=== PATIENT | female | born 1995 ===

== ENCOUNTER 2019-05-26 05:28 | Day surgery (SDC) | payer OTHER ==
[2019-05-26] VITALS (14 sets, daily range): BP systolic 105–139; BP diastolic 60–91
[~2019-05-26] VITALS: Ht 167.6 cm; Wt 63.5 kg
[~2019-05-26 05:28] MED LIST: ADDERAL20 MG ORAL; oxyCODONE 5mg IR tab ORAL PRN
[2019-05-26] MEDS ORDERED: TransDerm Scop 1.5mg/72HR Patch TDERMAL ONE (05:53)
[2019-05-26] MEDS ORDERED: Sodium Chloride 10ml vial INJ ONE (06:20)
[2019-05-26] MEDS ORDERED: Lidocaine 1% MPF 10mg/ml 5ml ONE (06:20)
[2019-05-26] MEDS ORDERED: Lidocaine 1% Plain 30 ml INJ ONE ×2 (06:20→08:49)
[2019-05-26] MEDS ORDERED: Dexamethasone 4mg/ml vial ONE (06:20)
[2019-05-26] MEDS ORDERED: LR 1000ml 1,000 ML IVLG SCH (06:21)
--- NOTE | 2019-05-26 06:23 | Immediate Post-Op Evaluation ---
Immediate Post-Op Evalulation Immediate Post-Op Evalulation Procedure: ACDF C5-6, C6-7 Date of Evaluation: May 26, 2019 Time of Evaluation: 10:17 IV Fluids: 1000 LR` Blood Products: 0 Estimated Blood Loss: 50 Urinary Output: 0 Blood Pressure Systolic: 122 Blood Pressure Diastolic: 71 Pulse Rate: 77 Respiratory Rate: 16 O2 Sat by Pulse Oximetry: 100 Temperature (Fahrenheit): 98.2 Pain Score (1-10): 2 Nausea: No Vomiting: No Complications 0 Patient Status: awake, reacts, patent, extubated, none Hydration Status: adequate Dru Grams Ancef IV Given Within 1 Hr of Incision: Yes Time Given: 07:31 Ron Potts MD May 26, 2019 06:23
[2019-05-26] MEDS ORDERED: Rocuronium Bromide 50mg/5ml Inj IV ONE (06:25)
[2019-05-26] MEDS ORDERED: Acetaminophen (Non formulary) 100 ML IV ONE (06:30)
[2019-05-26] MEDS ORDERED: LORazepam Inj 2mg/ml 1ml IV PRN (06:30)
[2019-05-26] MEDS ORDERED: Atropine Sulfate 0.4mg/ml inj IVP PRN (06:30)
[2019-05-26] MEDS ORDERED: Midazolam 2mg/2ml Inj IVP PRN (06:30)
[2019-05-26] MEDS ORDERED: oxyCODONE HCL/Acetaminophen 5/325mg ORAL PRN (06:30)
[2019-05-26] MEDS ORDERED: HYDROcodone/Acetamin 5/325 tab ORAL PRN (06:30)
[2019-05-26] MEDS ORDERED: DiphenhydrAMINE 50mg/ml Inj IVP PRN (06:30)
[2019-05-26] MEDS ORDERED: fentaNYL 100 mcg/2 mL IV PRN (06:30)
[2019-05-26] MEDS ORDERED: Meperidine 50mg/ml Inj(FOR RIGORS ONLY) IVP PRN (06:30)
[2019-05-26] MEDS ORDERED: Hydromorphone 0.5mg/0.5ml inj IVP PRN (06:30)
[2019-05-26] MEDS ORDERED: HYDROcodone/Acetamin 7.5/325 tab ORAL PRN (06:30)
[2019-05-26] MEDS ORDERED: Ketorolac 30mg Inj IV PRN ×2 (06:30)
[2019-05-26] MEDS ORDERED: Thrombin 5000 units TOPIC ONE (06:43)
[2019-05-26] MEDS ORDERED: Gelfoam Size TOPIC ONE (06:43)
[2019-05-26] MEDS ORDERED: Bacitracin 50000 Units Vial ONE (06:43)
--- NOTE | 2019-05-26 06:59 | Pre-Procedure Note/Attestation ---
Pre-Procedure Note/Attestation Complete Prior to Procedure Planned Procedure: not applicable Procedure Narrative: ACDF C5-C6, C6-C6 Anterior Plate Indications for Procedure Pre-Operative Diagnosis: intervertebral osteochondrosis, trauma Attestation I attest that I discussed the nature of the procedure; its benefits; risks and complications; and alternatives (and the risks and benefits of such alternatives ), prior to the procedure, with the patient (or the patient's legal access representative). I attest that, if there was a reasonable possibility of needing a blood transfusion, the patient (or the patient's legal access representative) was given the [facility] standardized written summary, pursuant to the [place] Blood Safety Act ([place] Health and Safety Code # 1645, as amended). I attest that I re-evaluated the patient just prior to the surgery and that there has been no change in the patient's H&P, except as documented below: Brady Cuellar MD May 26, 2019 06:59
[2019-05-26] MEDS ORDERED: Propofol 1,000mg/ 100ml btl IV ONE (07:00)
[2019-05-26] MEDS ORDERED: Dexamethasone 20mg/5ml IVP ONE (07:00)
[2019-05-26] MEDS ORDERED: LR 1000ml ONE (07:00)
[2019-05-26] MEDS ORDERED: NS Irrig 2000ml IRRIG ONE (07:00)
[2019-05-26] MEDS ORDERED: ceFAZolin sod 1 GM in NS 55 ML IVPB ONE (07:00)
--- NOTE | 2019-05-26 07:02 | Anethesia Preoperative Eval ---
Anesthesia Pre-op PMH/ROS General Date of Evaluation: May 26, 2019 Time of Evaluation: 07:01 Anesthesiologist: Katlyn ASA Score: ASA 2 Mallampati Score Class I : Soft palate, uvula, fauces, pillars visible Class II: Soft palate, uvula, fauces visible Class III: Soft palate, base of uvula visible Class IV: Only hard plate visible Mallampati Classification: Class I Surgeon: Polo Diagnosis: Neck Pain Surgical Procedure: ACDF C5-6, C6-7 Anesthesia History: none Family History: no anesthesia problems Allergies: Coded Allergies: No Known Allergies (Unverified , 05/24/19) Medications: see eMAR Patient NPO?: Yes NPO Date: May 25, 2019 NPO Time: 5 Past Medical History Gastrointestinal/Genitourinary: Reports: GERD, other - Crohns Disease Neurologic/Psychiatric: Reports: depression/anxiety Hematology/Immune: Reports: anemia PSxH Narrative: Breast Implants Anesthesia Pre-op Phys. Exam Physician Exam Last Vital Signs Date Time Temp Pulse Resp B/P (MAP) Pulse Ox O2 Delivery O2 Flow Rate FiO2 05/26/19 06:23 97.5 56 20 105/60 (75) 100 05/26/19 05:55 Room Air Constitutional: NAD Neurologic: CN 2-12 intact Cardiovascular: RRR Respiratory: CTA Gastrointestinal: S/NT/ND Airway Exam Mallampati Score: Class I MO: full ROM: full Teeth: intact Anesthesia Pre-op A/P Labs Urine Test Test 05/26/19 05:40 Urine HCG, Qualitative Pending Risk Assessment & Plan Assessment: ASA 2 Plan: GA, SED, GlideScope Go Status Change Before Surgery: No Pre-Antibiotics Dru Grams Ancef IV Given Within 1 Hr of Incision: Yes Time Given: 07:31 Ron Potts MD May 26, 2019 07:02
[2019-05-26] MEDS ORDERED: NS Irrig 1000ml IRRIG ONE (07:30)
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
--- NOTE | 2019-05-26 08:01 | 48 Hour Post Anesthesia Eval ---
Post Anesthesia Evaluation Procedure: ACDF C5-6, C6-7 Date of Evaluation: May 26, 2019 Time of Evaluation: 12:23 Blood Pressure Systolic: 109 0: 64 Pulse Rate: 74 Respiratory Rate: 18 Temperature (Fahrenheit): 98.3 O2 Sat by Pulse Oximetry: 100 Airway: patent Nausea: No Vomiting: No Pain Intensity: 2 Hydration Status: adequate Cardiopulmonary Status: Stable Mental Status/LOC: patient returned to baseline Follow-up Care/Observations: 0 Post-Anesthesia Complications: 0 Follow-up care needed: N/A Ron Potts MD May 26, 2019 08:01
[2019-05-26] MEDS ORDERED: fentaNYL 100 mcg/2 mL ONE (08:20)
[2019-05-26] MEDS ORDERED: Labetalol 5mg/ml 20ml vial IV ONE (08:21)
--- NOTE | 2019-05-26 10:14 | Brief Operative Note ---
Immediate Post Operative Note Operative Note Pre-op Diagnosis: intervertebral osteochondrosis, trauma Procedure: ACDF C5-C6, C6-C7 Plate C5-6-7 Post-op Diagnosis: same as pre-op Findings: consistent w/pre-op dx studies Surgeon: Polo AUGUSTIN Boiler Shop Mechanic: Kenneth BA Anesthesiologist: Katlyn AUGUSTIN Anesthesia: general Specimen: yes Complications: none Condition: stable Fluids: anesthesia Estimated Blood Loss: minimal Drains: none Implant(s) used?: Yes Brady Cuellar MD May 26, 2019 10:14
--- NOTE | 2019-05-26 12:00 | NUR ---
NURSE NOTES: Patient arrived on unit via hospital bed. Stable. Asleep. Breathing is even and unlabored. Surgical dressing clean, dry, and, intact. Patient's mother is at bedside and oriented to room, call light, and unit. Patient's mom instructed to use call light for assistance, verbalized understanding. Patient is in bed in locked and lowest position with call light within reach. WIll continue to monitor.
[2019-05-26] MEDS ORDERED: Morphine Sulfate 4mg/ml Inj (IV USE ONLY) IM PRN (13:30)
[2019-05-26] MEDS ORDERED: HYDROcodone/Acetamin 10/325 tab ORAL PRN (13:30)
[2019-05-26] MEDS: D5 1/2NS 1,000 ML IV SCH ×2 (13:30→14:31)
[2019-05-26] MEDS ORDERED: Naloxone 0.4mg/ml Inj IVP PRN (13:30)
[2019-05-26] MEDS ORDERED: Milk of Magnesia 30ml Ud ORAL PRN (13:30)
[2019-05-26] MEDS ORDERED: LORazepam 0.5mg tab ORAL PRN (13:30)
[2019-05-26] MEDS: HYDROmorphone 1mg/ml Carpuject SUBQ PRN ×2 (13:32→18:08)
--- NOTE | 2019-05-26 13:38 | Diagnostic Imaging Report ---
Indication: Intraoperative imaging COMPARISON: None FINDINGS: 6 fluoroscopic images were obtained intraoperatively. C5-C7 anterior discectomy and fusion demonstrated with prosthetic discs at the 2 intervening levels. Fluoroscopic time 13.1 seconds. IMPRESSION: Intraoperative imaging as described above
--- NOTE | 2019-05-26 13:40 | NUR ---
NURSE NOTES: patient voided. no c/o burning or discomfort.
[2019-05-26] MEDS ORDERED: Dronabinol 2.5mg Cap ORAL SCH (14:00)
[2019-05-26] MEDS ORDERED: Chloraseptic Spray 20mL Bottle ORAL PRN (14:30)
[2019-05-26] MEDS ORDERED: TransDerm Scop 1.5mg/72HR Patch TDERMAL SCH (15:00)
[2019-05-26] MEDS ORDERED: ceFAZolin sod 1 GM in D5W 55 ML IV SCH (15:30)
--- NOTE | 2019-05-26 16:45 | Operative Note - Dictated ---
DATE OF OPERATION: 05/26/2019 SURGEON: Brady Cuellar M.D. LOCK MASTER: JESENIA Allen. ANESTHESIOLOGIST: Jovany Cain D. ANESTHESIA: General with intubation. 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 OPERATIVE PROCEDURE: ACDF C5-C6, C6-C7 with anterior internal plate fixation, C5-C6-C7. ESTIMATED BLOOD LOSS: Minimal. COMPLICATIONS: None. SPECIMEN: Disc fragments to pathology. POSTOPERATIVE CONDITION: Good/stable. DRAINS: None. DESCRIPTION OF PROCEDURE: The patient was brought to the operating room and in the supine position, general anesthesia with intubation was induced. IV antibiotics and IV Decadron were administered 30 minutes prior to incision time. With markers taped to the contralateral aspect of the cervical spine after positioning, determination was made for incision level placement. Level was marked. Markers removed. Anterior neck sterilely prepped and draped free in usual sterile fashion. A transverse left incision over the appropriate intervals was sharply carried through dermis and epidermis. Electrocautery dissection was carried through the subcutaneous tissue to the level of the platysmas muscle that was identified, isolated and transected in line with the incision. Blunt dissection was carried medial to the left sternocleidomastoid muscle through the deep cervical and pretracheal fascia to the midline between the right and left longus colli muscles. Disc space was identified under high-power magnification. A spinal needle bent at 90 degree angle so as to avoid penetration greater than 3 mm in the disc space was placed into the disc space and cross-table imaging was obtained and interpreted by surgeons as correct level. All under sterile conditions. Level was marked. Needle removed. Subperiosteal dissection of the longus coli muscles not exceeding 3 mm in the mediolateral extent. Retractors were placed at the presumed C5-C6 interval. Spinal needle once again placed into the disc space. Cross-table imaging obtained demonstrating the correct level for further dissection. Level marked. Needle removed. Under high-power magnification, annulotomy followed discectomy and removal of the posterior longitudinal ligament and disc protrusion. The patient is stable with SSEP monitoring at all times. Appropriate trials were utilized to determine graft size position. Appropriate graft was sterilely opened packed with osteopromotive material with local autograft tamped into position. Fluoroscopic guidance demonstrated excellent alignment to midline and . The patient is stable. Attention was turned with replacement of the retractors at C6-C7 interval. Annulotomy was performed followed with discectomy denuding of endplates of cartilaginous caps followed with excision of the posterior longitudinal ligament. No cerebrospinal fluid leakage or dural tears noted anytime during the procedure for either levels. SSEP monitoring stable at all times. After determination of appropriate size, the appropriate lordotic titanium graft containing osteopromotive material in combination with local autograft was tamped into position. Fluoroscopic imaging in AP and lateral excellent alignment. All traction on the neck (10 pounds) removed. Anterior internal plate fixation in a compressive fashion was undertaken C5-C6-C7 with screws locked into position. Excellent bone quality noted. Wound was irrigated with antibiotic-containing saline. Exploration revealed no obvious excoriation or laceration of vital structures. FloSeal applied followed with reapproximation of platysmas muscle followed with reapproximation with subcuticular closure of dermis and epidermis. Transverse surgical strips and sterile bandage maintained in place with tape. The patient was awakened, extubated in the operating room, and transported to postop recovery in good stable condition. Brady Cuellar M.D. DR: URIEL JOB#: [id number] CC:
--- NOTE | 2019-05-26 19:00 | NUR ---
NURSE NOTES: Patient discharged home as ordered. Stable. Denies pain or SOB. Patient was given thorough discharge instructions by RN, verbalized understanding. Patient has written instructions for proper body mechanics and movements, patient verbalized understanding. Patient has prescription from Dr. Gonzalez, patient stated that she will fill medication from pharmacy. Patient has an appointment with Dr. Cuellar for follow up visit and discussed discharge with Dr. Cuellar and Dr. Gonzalez prior to being admitted. Patient's skin is clean, dry, and intact. No IV access. Patient is able to ambulate with assistance, mother Faiza aware of proper body mechanics and will assist patient when at home. Surgical dressing clean, dry, and intact. Supplies given to patient for reinforcement of dressing if needed. Dressing reinforcement instructions given to patient and patient's mother in case dressing comes undone or is not secure. Infection prevention teaching given to patient and patient's mother. Patient was instructed to look for signs and symptoms of complications, and was given printed instructions and verbalized understanding. Patient knows to call Dr. Cuellar in case of any further questions regarding procedure. Patient has all belongings. Patient assisted into private vehicle by RN without incident.
== END 2019-05-26 19:12 | disposition home or self-care (01) ==
LOC: SUR 05:28 → EDSTATUS 07:00 → 3E 13:04
DX: M54.12 Radiculopathy, cervical region (principal); K50.90 Crohn's disease, unspecified, without complications; K21.9 Gastro-esophageal reflux disease without esophagitis; F41.9 Anxiety disorder, unspecified; F32.9 Major depressive disorder, single episode, unspecified
CPT/HCPCS: 22551; 22552; 36415; 72040; 76000; 81025; 86850; 86900; 86901; 87081; C1713; J0690; J1100; J1170; J1200; J1885; J2001; J2250; J2405; J2704; J3010; 94003; 94150